=== PATIENT | female | born 1970 | race Native Hawaiian/Other Pacific Islander ===

== ENCOUNTER 2016-04-19 22:15 | Emergency (ER) | payer OTHER ==
[~2016-04-19] VITALS: Ht 157.5 cm; Wt 63.5 kg
[2016-04-19 23:54] VITALS: BP 154/94; TEMP 97.9
== END 2016-04-20 | disposition home or self-care (01) ==
LOC: ED 22:15
DX: J40 Bronchitis, not specified as acute or chronic (principal); J98.01 Acute bronchospasm
CPT/HCPCS: 99282

== ENCOUNTER 2016-05-17 19:33 | Emergency (ER) | payer OTHER ==
[~2016-05-17] VITALS: Ht 157.5 cm; Wt 61.2 kg
[2016-05-17] MEDS ORDERED: LISI10TA11 PO (19:48)
[2016-05-17 21:36] VITALS: BP 120/80; TEMP 98
== END 2016-05-17 21:37 | disposition home or self-care (01) ==
LOC: ED 19:33
DX: S80.01XA Contusion of right knee, initial encounter (principal); W18.39XA Other fall on same level, initial encounter; Y93.89 Activity, other specified; Y92.89 Other specified places as the place of occurrence of the external cause; Y99.8 Other external cause status; S80.211A Abrasion, right knee, initial encounter
CPT/HCPCS: 90471; 90715; 99283

== ENCOUNTER 2016-06-18 20:07 | Emergency (ER) | payer OTHER ==
[~2016-06-18] VITALS: Ht 154.9 cm; Wt 61.7 kg
[~2016-06-18 20:07] MED LIST: LISI10TA11 PO
[2016-06-18 21:10] VITALS: BP 151/79; TEMP 98.3
== END 2016-06-18 21:15 | disposition home or self-care (01) ==
LOC: ED 20:07
DX: S92.912A Unspecified fracture of left toe(s), initial encounter for closed fracture (principal); X58.XXXA Exposure to other specified factors, initial encounter; Y92.098 Other place in other non-institutional residence as the place of occurrence of the external cause
CPT/HCPCS: 99283

== ENCOUNTER 2016-07-05 00:11 | Outpatient (CLI) | payer OTHER | END 2016-07-05 00:16 | disposition short-term general hospital (02) | LOC: AMB 00:11 | DX: R07.89 Other chest pain (principal); R00.0 Tachycardia, unspecified | CPT/HCPCS: A0425; A0427 ==

== ENCOUNTER 2016-07-05 00:26 | Emergency (ER) | payer OTHER ==
[~2016-07-05] VITALS: Ht 157.5 cm; Wt 61.7 kg
[2016-07-05 00:41] LABS: PLATELET COUNT 389 K/uL (152-353)
[2016-07-05 00:54] LABS: POTASSIUM 3.4 mmol/L (3.6-5.2); SODIUM 132 mmol/L (136-145)
[2016-07-05 01:18] LABS: PARTIAL THROMBOPLASTIN TIME 25.4 SECONDS (24.5-33.6)
[2016-07-05 03:41] VITALS: BP 143/91; TEMP 99.2
== END 2016-07-05 03:43 | disposition home or self-care (01) ==
LOC: ED 00:26
DX: K29.70 Gastritis, unspecified, without bleeding (principal); B96.81 Helicobacter pylori [H. pylori] as the cause of diseases classified elsewhere; R10.13 Epigastric pain
CPT/HCPCS: 36415; 80053; 80307; 81000; 82550; 84484; 85027; 85610; 85730; 86318; 99284; G0479; Q9963

== ENCOUNTER 2016-08-03 00:34 | Emergency (ER) | payer OTHER ==
[~2016-08-03] VITALS: Ht 157.5 cm; Wt 62.6 kg
[2016-08-03 02:05] VITALS: BP 126/69; TEMP 98.3
== END 2016-08-03 02:06 | disposition home or self-care (01) ==
LOC: ED 00:34
DX: J20.8 Acute bronchitis due to other specified organisms (principal); R09.1 Pleurisy
CPT/HCPCS: 99283

== ENCOUNTER 2016-10-01 17:29 | Emergency (ER) | payer OTHER ==
[~2016-10-01] VITALS: Ht 154.9 cm; Wt 61.7 kg
[2016-10-01 20:10] VITALS: BP 149/75; TEMP 98.3
== END 2016-10-01 20:10 | disposition home or self-care (01) ==
LOC: ED 17:29
DX: M77.9 Enthesopathy, unspecified (principal)
CPT/HCPCS: 99283

== ENCOUNTER 2016-11-02 01:07 | Emergency (ER) | payer OTHER ==
[~2016-11-02] VITALS: Ht 154.9 cm; Wt 63.5 kg
[2016-11-02 02:03] VITALS: BP 141/75; TEMP 98.2
== END 2016-11-02 02:09 | disposition home or self-care (01) ==
LOC: ED 01:07
DX: M25.561 Pain in right knee (principal)
CPT/HCPCS: 99281

== ENCOUNTER 2017-01-13 01:35 | Emergency (ER) | payer OTHER ==
[~2017-01-13] VITALS: Ht 157.5 cm; Wt 61.7 kg
[2017-01-13 02:34] LABS: PLATELET COUNT 304 K/uL (152-353)
[2017-01-13 03:11] LABS: POTASSIUM 3.8 mmol/L (3.6-5.2); SODIUM 137 mmol/L (136-145)
[2017-01-13 03:23] LABS: PARTIAL THROMBOPLASTIN TIME 24.3 SECONDS (24.5-33.6)
[2017-01-13 04:03] VITALS: BP 154/74; TEMP 98.1
== END 2017-01-13 04:06 | disposition home or self-care (01) ==
LOC: ED 01:35
DX: R07.89 Other chest pain (principal); I10 Essential (primary) hypertension
CPT/HCPCS: 36415; 80053; 82550; 82553; 84484; 85027; 85610; 85730; 93005; 99283

== ENCOUNTER 2017-02-26 08:57 | Emergency (ER) | payer OTHER ==
[~2017-02-26] VITALS: Ht 154.9 cm; Wt 61.7 kg
[2017-02-26 09:00] VITALS: TEMP 97.8
[2017-02-26 09:42] LABS: PLATELET COUNT 305 K/uL (152-353)
[2017-02-26 10:05] VITALS: BP 162/85
== END 2017-02-26 10:15 | disposition home or self-care (01) ==
LOC: ED 08:57
DX: J20.9 Acute bronchitis, unspecified (principal)
CPT/HCPCS: 85027; 87804; 99283

== ENCOUNTER 2017-04-08 01:15 | Emergency (ER) | payer OTHER ==
[~2017-04-08] VITALS: Ht 154.9 cm; Wt 61.7 kg
[2017-04-08 03:15] VITALS: BP 151/91; TEMP 97.9
== END 2017-04-08 03:18 | disposition home or self-care (01) ==
LOC: ED 01:15
DX: S93.402A Sprain of unspecified ligament of left ankle, initial encounter (principal); X50.1XXA Overexertion from prolonged static or awkward postures, initial encounter; Y92.098 Other place in other non-institutional residence as the place of occurrence of the external cause
CPT/HCPCS: 99282

== ENCOUNTER 2017-05-29 11:04 | Emergency (ER) | payer OTHER ==
[~2017-05-29] VITALS: Ht 154.9 cm; Wt 61.7 kg
[2017-05-29 11:08] VITALS: BP 148/82; TEMP 98.3
== END 2017-05-29 11:50 | disposition home or self-care (01) ==
LOC: ED 11:04
DX: R05 Cough (principal)
CPT/HCPCS: 99281

== ENCOUNTER 2017-06-25 23:57 | Emergency (ER) | payer OTHER ==
[~2017-06-25] VITALS: Ht 152.4 cm; Wt 60.3 kg
[2017-06-26 01:00] VITALS: BP 178/68; TEMP 97.8
== END 2017-06-26 01:04 | disposition home or self-care (01) ==
LOC: ED 23:57
DX: S80.02XA Contusion of left knee, initial encounter (principal); W20.8XXA Other cause of strike by thrown, projected or falling object, initial encounter; Y92.511 Restaurant or cafe as the place of occurrence of the external cause
CPT/HCPCS: 99282

== ENCOUNTER 2017-07-07 23:50 | Emergency (ER) | payer OTHER ==
[~2017-07-07] VITALS: Ht 154.9 cm; Wt 58.5 kg
[2017-07-08 00:46] LABS: PLATELET COUNT 289 K/uL (152-353)
[2017-07-08 01:28] VITALS: BP 127/58; TEMP 99.2
== END 2017-07-08 01:29 | disposition home or self-care (01) ==
LOC: ED 23:50
DX: J02.0 Streptococcal pharyngitis (principal)
CPT/HCPCS: 36415; 81000; 85027; 87804; 87880; 96372; 99283; J0696

== ENCOUNTER 2017-09-18 21:31 | Emergency (ER) | payer OTHER ==
[~2017-09-18] VITALS: Ht 152.4 cm; Wt 57.2 kg
[2017-09-18 21:50] VITALS: BP 169/82; TEMP 98.3
== END 2017-09-18 22:05 | disposition home or self-care (01) ==
LOC: ED 21:31
DX: S90.829A Blister (nonthermal), unspecified foot, initial encounter (principal)
CPT/HCPCS: 99281

== ENCOUNTER 2017-09-21 00:18 | Emergency (ER) | payer OTHER ==
[~2017-09-21] VITALS: Ht 154.9 cm; Wt 57.2 kg
[2017-09-21 00:41] VITALS: BP 160/80; TEMP 97.9
== END 2017-09-21 01:09 | disposition home or self-care (01) ==
LOC: ED 00:18
DX: B35.3 Tinea pedis (principal); S90.862A Insect bite (nonvenomous), left foot, initial encounter; W57.XXXA Bitten or stung by nonvenomous insect and other nonvenomous arthropods, initial encounter
CPT/HCPCS: 99281

== ENCOUNTER 2017-10-01 16:24 | Emergency (ER) | payer OTHER ==
[~2017-10-01] VITALS: Ht 154.9 cm; Wt 57.2 kg
[2017-10-01 16:25] VITALS: TEMP 97.2
[2017-10-01 18:19] VITALS: BP 168/99
== END 2017-10-01 18:20 | disposition home or self-care (01) ==
LOC: ED 16:24
DX: S16.1XXA Strain of muscle, fascia and tendon at neck level, initial encounter (principal); V44.5XXA Car driver injured in collision with heavy transport vehicle or bus in traffic accident, initial encounter; Y93.89 Activity, other specified; Y92.89 Other specified places as the place of occurrence of the external cause; Y99.8 Other external cause status
CPT/HCPCS: 99283

== ENCOUNTER 2017-10-08 23:04 | Emergency (ER) | payer OTHER ==
[~2017-10-08] VITALS: Ht 154.9 cm; Wt 57.2 kg
[2017-10-08] MEDS ORDERED: LISI10TA11 PO (23:30)
[2017-10-09 01:38] VITALS: BP 144/81; TEMP 98.2
== END 2017-10-09 01:45 | disposition home or self-care (01) ==
LOC: ED 23:04
DX: S16.1XXA Strain of muscle, fascia and tendon at neck level, initial encounter (principal); R51 Headache
CPT/HCPCS: 99283; L0120

== ENCOUNTER 2017-12-21 01:06 | Emergency (ER) | payer OTHER ==
[~2017-12-21] VITALS: Ht 154.9 cm; Wt 57.2 kg
[2017-12-21 01:47] VITALS: BP 163/78; TEMP 98.5
[2017-12-22] MEDS ORDERED: LISI10TA11 PO (22:43)
== END 2017-12-21 01:46 | disposition home or self-care (01) ==
LOC: ED 01:06
DX: R21 Rash and other nonspecific skin eruption (principal)
CPT/HCPCS: 99282

== ENCOUNTER 2017-12-22 22:31 | Emergency (ER) | payer OTHER ==
[~2017-12-22] VITALS: Ht 154.9 cm; Wt 58.5 kg
[2017-12-22] MEDS ORDERED: LISI10TA11 PO (22:43)
[2017-12-23 01:29] VITALS: BP 148/67; TEMP 98
== END 2017-12-23 01:30 | disposition home or self-care (01) ==
LOC: ED 22:31
DX: R63.1 Polydipsia (principal)
CPT/HCPCS: 81000; 99282

== ENCOUNTER 2018-01-24 11:18 | Emergency (ER) | payer OTHER ==
[~2018-01-24] VITALS: Ht 154.9 cm; Wt 58.5 kg
[2018-01-24 11:33] VITALS: BP 166/83; TEMP 98.1
== END 2018-01-24 13:00 | disposition home or self-care (01) ==
LOC: ED 11:18
DX: M79.672 Pain in left foot (principal)
CPT/HCPCS: 96372; 99282; J1885

== ENCOUNTER 2018-02-23 11:41 | Emergency (ER) | payer OTHER ==
[~2018-02-23] VITALS: Ht 154.9 cm; Wt 59.0 kg
[2018-02-23 11:50] VITALS: TEMP 97.7
[2018-02-23 12:47] LABS: PLATELET COUNT 290 K/uL (152-353)
[2018-02-23 13:21] LABS: POTASSIUM 4.2 mmol/L (3.6-5.2)
[2018-02-23 13:56] VITALS: BP 142/78
== END 2018-02-23 13:56 | disposition home or self-care (01) ==
LOC: ED 11:41
DX: J20.9 Acute bronchitis, unspecified (principal)
CPT/HCPCS: 36415; 80053; 81000; 85027; 87502; 87651; 99283

== ENCOUNTER 2018-02-28 10:58 | Emergency (ER) | payer OTHER ==
[~2018-02-28] VITALS: Ht 154.9 cm; Wt 59.0 kg
[2018-02-28 13:18] VITALS: BP 155/80; TEMP 98.7
== END 2018-02-28 13:21 | disposition home or self-care (01) ==
LOC: ED 10:58
DX: J40 Bronchitis, not specified as acute or chronic (principal)
CPT/HCPCS: 94664; 99282

== ENCOUNTER 2018-03-24 10:30 | Emergency (ER) | payer OTHER ==
[~2018-03-24] VITALS: Ht 154.9 cm; Wt 59.0 kg
[2018-03-24 10:35] VITALS: TEMP 97
[2018-03-24 13:01] VITALS: BP 145/78
== END 2018-03-24 13:02 | disposition home or self-care (01) ==
LOC: ED 10:30
DX: S93.492A Sprain of other ligament of left ankle, initial encounter (principal); M13.872 Other specified arthritis, left ankle and foot
CPT/HCPCS: 36415; 84550; 99283

== ENCOUNTER 2018-04-27 10:24 | Emergency (ER) | payer OTHER ==
[~2018-04-27] VITALS: Ht 154.9 cm; Wt 59.0 kg
[2018-04-27 10:31] VITALS: TEMP 98.1
[2018-04-27 11:06] LABS: PLATELET COUNT 310 K/uL (152-353)
[2018-04-27 11:15] LABS: POTASSIUM 3.9 mmol/L (3.6-5.2)
[2018-04-27 13:00] VITALS: BP 131/68
== END 2018-04-27 13:01 | disposition home or self-care (01) ==
LOC: ED 10:24
DX: J06.9 Acute upper respiratory infection, unspecified (principal)
CPT/HCPCS: 36415; 80053; 81000; 85027; 87502; 87651; 99283

== ENCOUNTER 2018-11-30 19:46 | Emergency (ER) | payer OTHER ==
[~2018-11-30] VITALS: Ht 154.9 cm; Wt 63.5 kg
[2018-11-30 19:58] VITALS: BP 167/97; TEMP 98.5
== END 2018-11-30 20:43 | disposition home or self-care (01) ==
LOC: ED 19:46
DX: S92.352A Displaced fracture of fifth metatarsal bone, left foot, initial encounter for closed fracture (principal); X50.9XXA Other and unspecified overexertion or strenuous movements or postures, initial encounter
CPT/HCPCS: 99283